=== PATIENT | female | born 1950 | race Caucasian/White ===

== ENCOUNTER 2025-02-02 11:37 | Emergency (ER) | payer MEDICARE, SELFPAY ==
--- NOTE | ~2025-02-02 | XR_ITS ---
EXAMINATION: XR knee RT 3V DATE: 02/02/2025 12:10 INDICATION: Injury TECHNIQUE: Right knee x-ray were obtained. COMPARISON: None. FINDINGS: The medial tibial plateau appears somewhat distorted possibly chronic but nondisplaced fractures difficult to exclude. The remainder the exam is unremarkable. IMPRESSION: 1. Atypical appearance of the medial tibial plateau which could be associated with nondisplaced medial tibial plateau fracture. Reviewed, dictated and finalized at location A. OSTATIC TESTER IMPRESSION: 1. Atypical appearance of the medial tibial plateau which could be associated w ith nondisplaced medial tibial plateau fracture.
[2025-02-02 11:46] VITALS: BP 136/85; PULSE 75; RESP 20; TEMP 37; O2SAT 97
--- NOTE | 2025-02-02 11:57 | ED_ITS ---
HPI - Extremity Injury (Lower) General Chief Complaint: Extremity Injury, Lower Stated Complaint: right knee injury History of Present Illness HPI Narrative: patient is a 74-year-old female, past medical history significant for GERD and hyperlipidemia, presents to [facility] with right knee pain, onset of symptoms 2 days ago when she tripped over an animal at her home and landed on her right knee. She denies any additional injuries as result of this incident.. She has had pain and swelling since, prompting her visit. Related Data Home Medications ?Medication ?Instructions ?Recorded ?Confirmed ?Last Taken ?Type famotidine 20 mg tablet mg 02/02/25 Unknown History omeprazole 40 mg capsule,delayed mg 02/02/25 Unknown History release pravastatin 20 mg tablet mg 02/02/25 Unknown History venlafaxine 37.5 mg mg PO 02/02/25 Unknown Hist ory capsule,extended release 24 hr Allergies Allergy/AdvReac Type Severity Reaction Status Date / Time No Known Allergies Allergy Verified 02/02/25 11:56 Review of Systems Musculoskeletal: Musculoskeletal: Reports no additional musculoskeletal complaints and Reports as per HPI Exam Const: General: healthy appearing and no acute distress Nutritional Appearance: well nourished and obese Orientation/consciousness: patient oriented x3 Limitations: no limitations HENMT: Head: normal to inspection Ears: external ears normal Face/Nose/Sinus: Normal external nose present Teeth and gingiva: dentition normal Eyes: Conjunctivae: conjunctivae normal EOM: EOMs intact bilaterally Direct Ophthalmoscopy: no photophobia Neck: Neck: normal visual inspection Other: no C-spine tenderness, step-offs Resp: Effort & Inspection: normal respiratory effort Cardio: Rate: regular rate Rhythm: regular rhythm Back/Spine/Pelvis: Other: no T or L-spine point tenderness, step-offs Skin: General skin exam: normal color Rashes: no rashes Wounds: no wounds Other: no ecchymosis Neuro: General: patient oriented x3, moves all extremities, no meningeal signs, no focal motor deficits and CN's II-XI intact bilaterally Extrem: Other: patient has chronic external rotation of her lower extremities secondary to 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 Patient is tender palpation over the right prepatellar and right knee joint line without crepitus or palpable joint effusion. There is no discoloration. patient unable to relax her lower extremity to determine if there is laxity with valgus or varus stress however there is no gross laxity noted. The right ankle is nontender palpation, as is the right foot. Distal PMS intact Course Course Emergency Course: Right knee plain film: Atypical appearance of the medial tibial plateau which could be associated with nondisplaced medial tibial plateau fracture. Will place in a knee immobilizer, orthopedic follow-up planned , likely outpatient CT of the right knee versus MRI may be ordered by Ortho at that appointment. Patient will call for an appointment. Level of Care: Express Care Visit ([id number]) Vital Signs Vital signs: Vital Signs Temperature 37.0 C 02/02/25 11:46 Pulse Rate 75 02/02/25 11:46 Respiratory Rate 20 02/02/25 11:46 Blood Pressure 136/85 02/02/25 11:46 Pulse Oximetry 97 02/02/25 11:46 Oxygen Delivery Room Air 02/02/25 11:46 Temperature 37.0 C 02/02/25 11:46 Pulse Rate 75 02/02/25 11:46 Respiratory Rate 20 02/02/25 11:46 Blood Pressure 136/85 02/02/25 11:46 Pulse Oximetry 97 02/02/25 11:46 Oxygen Delivery Room Air 02/02/25 11:46 MDM - Extremity Injury (Lower) MDM Narrative Medical decision making narrative: patient is placed in knee immobilizer, she plans to follow-up with ortho audible more ill as her PCP is located there however she is provided our on-call orthopedic provider for follow-up as a backup plan if she is unable to see her planned Ortho for any reason. She is given home care instructions, including continued rest, ice, elevation and the immobilizer use. Differential Diagnosis Differential diagnosis: Likely other ( Fracture, sprain, strain, internal derangement of the knee) Discharge Plan Discharge Clinical Impression: Injury of knee, right Qualifiers: Encounter type: initial encounter Qualified Code(s): S89.91XA - Unspecified injury of right lower leg, initial encounter Patient Disposition: Home Condition: Stable Instructions: Antibiotic Form, ACL Injury (ED), Knee Immobilizer (ED) Additional Instructions: WE ARE CONCERNED YOU MAY HAVE INJURY TO 1 OF THE LIGAMENTS THE CENTER OF THE KNEE, THE ACL OR PCL, BASED ON YOUR X-RAY AND THE LOCATION OF DISCOMFORT. YOU WILL LIKELY REQUIRE ADVANCED IMAGING SUCH CT OR MRI ONCE YOU ARE EVALUATED BY ORTHO. WEAR THE KNEE IMMOBILIZER ALL TIMES, REMOVING ONLY TO BATHE/SHOWER. ELEVATE THE LOWER EXTREMITY WHEN YOU ARE SEATED, FOLLOW-UP WITH THE ORTHOPEDIC PROVIDER OF YOUR CHOICE, CALL FOR APPOINTMENT. Patient Language: Kiswahili Prescriptions: No Action venlafaxine 37.5 mg capsule,extended release 24hr PO omeprazole 40 mg capsule,delayed release(DR/EC) famotidine 20 mg tablet pravastatin 20 mg tablet Follow-up/Referrals: Lisandra,MD Dc [Primary Care Provider] Yamil Ryan MD [Physician, Orthopedics] Time of Disposition: 12:29
--- OUTSIDE RECORDS SUMMARY | 2025-02-02 12:22 | XMS_ITS | Clinical Summary ---
Author Organization [facility] [address] Address [address] [address] Phone Care Team Providers Care Forklift Technician Name Role Phone Lisandra Dc Nicolas BARBA Primary Care Provider [phone] Allergies No known active allergies Medications venlafaxine XR (EFFEXOR-XR) 37.5 mg 24 hr capsuleIndicati ons:Depression, unspecified depression type TAKE 1 CAPSULE BY MOUTH EVERY DAY 90 capsule 1 5 Active omeprazole (PriLOSEC) 40 mg capsuleIndicati ons:Iron deficiency TAKE 1 CAPSULE (40 MG TOTAL) BY MOUTH DAILY. 90 capsule 1 5 Active famotidine (PEPCID) 20 mg tablet TAKE 1 TABLET BY MOUTH EVERY DAY AT NIGHT 90 tablet 1 5 Active pravastatin (PRAVACHOL) 20 mg tablet TAKE 1 TABLET BY MOUTH EVERY DAY 90 tablet 5 Active pravastatin (PRAVACHOL) 20 mg tablet TAKE 1 TABLET BY MOUTH EVERY DAY 90 tablet 5 025 Discontinued Active Problems Problem Noted Date Diagnosed Date Encounter for Medicare annual wellness exam 02/23 Assessment & Plan (08/29/2024 5:26 PM CDT): IMMUNIZATIONS WERE REVIEWED EYE EXAM AND DENTLA UPTODATE FALL PREVENTION AND PRECUATIONS WERE REVIEWED NO CONGTIVE DECLIN E GRANT (generalized anxiety disorder) 02/29/2024 Assessment & Plan (02/29/2024 7:43 PM PRESIDING JUDGE): Chronic and stable On effexor 37.5 mg po qday Routine physical examination 08/21/2023 Assessment & Plan (08/22/2023 4:51 PM CDT): IMMUNIZATIONS WERE REVIEWED EYE EXAM IS UPTODATE DENTAL APPTS UPTODATE COLONSCOPY IS UPTODATE AND MAMMOGRAM MAJOR DEPRESSION IN REMISSION ON EFFEXOR MIXED HYPERLIPIMDEIA : GOAL LDL IS UNDER 100 ON PRAVACHOL GERD SEVERE WITHOUT ESOPHAGITIS : PRILOSEC PLUS PEPCID FATIGUE : NON SPECIFIC WILL START WITH BLOOD WORK WITH B12/ TSH AND VIT D Mixed hyperlipidemia 02/06/2022 Overview (02/06/2022): ADD PRAVACHOL 20 MG PO QA Assessment & Plan (02/29/2024 7:44 PM PRESIDING JUDGE): Flp and ldl were reviewed Goal ldl is under 100 On pravachol 20 mg po qday Gastroesophageal reflux disease with esophagitis 09/01/2021 Overview (09/01/2021): Added automatically from request for surgery [id number] Assessment & Plan (02/29/2024 7:43 PM PRESIDING JUDGE): Chronic and stable On prilosec am And pepcid in pm Depression 03/12/2013 Overview (06/30/2016): Depression Rheumatoid arthritis 02/20/2012 Overview (06/30/2016): Rheumatoid arthritis Immunizations Immunization Administration Dates Next Due Influenza, Quad, Adjuvantate d, Intramuscular 12/31/2019 Influenza, Quadrivalent, Hig h Dose, Preservative Free, Intrr 02/20/2023,02/06/2022,02/07/2021 Influenza, Trivalent, High D ose, Split, Preservative Free, Intramuscular 02/29/2024,11/29/2018,01/11/2018,01/04 Pneumococcal Conjugate PCV 13 08/22/2019 ZOSTER Recombinant 08/18/2024,06/09/2024 Surgical History Surgery Date Site/Laterality Comments FOOT SURGERY 2001 L Foot Surgery ESOPHAGOGASTRODUODENOSCOPY COLONOSCOPY 09/10/2024 Medical History Medical History Date Comments RA (rheumatoid arthritis) GRANT (generalized anxiety disorder) MDD (major depressive disorder) HLD (hyperlipidemia) GERD (gastroesophageal reflux disease) Family History Medical History Relation Name Comments Heart disease Father 2 Heart disease; Cause of : Heart disease Arthritis Mother 2 Arthritis; Heart disease Mother 2 Heart disease; Cause of : Heart disease Other Other 1 No family histo ry of Cancer, breast; Other Other 2 No family histo ry of Cancer, colon; Relation Name Status Comments Father 1 (Age 84) Father 2 Mother 1 (Age 86) Mother 2 Other 1 Other 2 Social History Tobacco Use Types Packs/Day Years Used Date Smoking Tobacco: Never Smokeless Tobacco: Never Tobacco Cessation:Counseling Given: Not Answered Alcohol Use Standard Drinks/Week Comments No 0 (1 standard drink = 0.6 oz pur e alcohol) PHQ-2 Answer Date Recorded PHQ-2 Total Score (If total score is 3 or more points, staff should administer the PHQ-9) 0 08/29/2024 Personal Safety Answer Date Recorded Have you ever been in or are you currently in a harmful physical or emotional relationship or is someone making you feel afraid or unsafe? Denies 09/10/2024 Comments No Sex and Gender Information Value Date Recorded Sex Assigned at Not on file Legal Sex Female 1:43 AM PRESIDING JUDGE Gender Identity Not on file Sexual Orientation Not on file Obstetrics History Para Term AB IAB SAB Ectopic Multiple Livin g Live Births 3 3 3 Date Outcome GA Total Labor Labor/2nd/3rd Weight Sex Type Anes PTL Juanita A1 A5 Name Clin Term Term Term Last Filed Vital Signs Vital Sign Reading Time Taken Comments Blood Pressure 135/80 09/10/2024 11:03 AM CDT Pulse 60 09/10/2024 11:03 AM CDT Temperature 36.2 C (97.2 F) 09/10/2024 11:03 AM CDT Respiratory Rate 16 09/10/2024 11:03 AM CDT Oxygen Saturation 100% 09/10/2024 11:03 AM CDT Inhaled Oxygen Concentration - - Weight 72.6 kg (160 lb 0.9 oz) 09/30/2024 1:08 P M CDT Height 157.5 cm (5' 2) 09/30/2024 1:08 PM CDT Body Mass Index 29.27 09/30/2024 1:08 PM CDT Plan of Treatment Health Maintenance Due Date Last Done Comments Hepatitis C Screening 1950 DTaP/Tdap/Td Vaccine (1 - Tdap) 1961 Hepatitis B Screening 1968 Pneumococcal vaccine 65+ (2 of 2 - PCV20 or PCV21) 08/21/2020 08/22/2019 Covid-19 Vaccine (3 - 2024-2 6 season) 2024 09/30/2020, 09/07/2020 Influenza Vaccine (#1) 2024 , 02/20/2023, 02/06/2022, Additional history exists Depression Screening 08/29/2025 08/29/2024, 08/21/2023, 08/15/2022 Well Visit 65+ 08/29/2025 08/29/2024, 07/25, 08/15/2022, Additional history exists Fall Risk Assessment 09/10/2025 09/10/2024, 08/29/2024, 08/21/2023, Additional history exists Breast Cancer Screening-Mammogram 09/30/2025 09/30/2024, 08/29/2023, 02/13/2022, Additional history exists Osteoporosis Screening-Bone Density Scan 04/15/2026 04/15/2024, 12/11/2017 Colon Cancer Screening-Colonoscopy 09/10/2034 09/10/2024, 05/21/2015, 05/20/2015 Zoster Vaccine Completed 08/18/2024, 06/09/2024 Colon Cancer Screening-CT Colonography Discontinued 09/10/2024, 05/21/2015, 05/20/2015 Colon Cancer Screening-DNA Stool Discontinued 09/10/2024, 05/21/2015, 05/20/2015 Colon Cancer Screening-FIT Discontinued 09/10, 05/21/2015, 05/20/2015 Colon Cancer Screening-Sigmoidoscopy Discontinued 09/10/2024, 05/21/2015, 05/20/2015 Procedures Procedure Name Priority Date/Time Associated Diagnosis Comments SCREENING MAMMOGRAM BILATERAL W CHAVEZ Schedule Routine, Read Routine (OP Routine) 09/30/2024 1:07 PM CDT Screening mammogram for breast cancer COLONOSCOPY 09/10/2024 8:53 AM CDT DEXA AXIAL SKELETON BONE DENSITY 1 OR MORE SITES Schedule Routine, Read Routine (OP Routine) 04/15/2024 8:48 AM PRESIDING JUDGE Menopause from Last 3 Months or Most Recently Relevant to Health Maintenance Results * Screening Mammogram Bilateral W Chavez (09/30/2024 1:07 PM CDT) Anatomical Region Laterality Modality Breast Bilateral Mammography Impressions 09/30/2024 3:43 PM CDT Bilateral No evidence of malignancy in either breast. OVERALL BI-RADS FINAL ASSESSMENT: 2 - Benign RECOMMENDATION: Recommend bilateral annual screening mammography. Narrative 09/30/2024 3:43 PM CDT EXAMINATION: Screening Mammogram Bilateral W Chavez: 09/30/2024 COMPARISON: Relevent prior studies available at the time of interpretation were reviewed, including the most recent mammogram on: 08/29/2023. TECHNIQUE: Mammography was performed with 2D and digital breast tomosynthesis (DBT) images. CAD was utilized. BREAST PARENCHYMAL COMPOSITION: There are scattered areas of fibroglandular density. FINDINGS: Bilateral There is no suspicious mass, calcification, or architectural distortion in either breast. Dc Fry MD IMG MAMMO PROCEDURES Final Result * Colonoscopy (09/10/2024 8:53 AM CDT) Anatomical Region Laterality Modality Other Narrative Procedure Note Ibrahima Bautista, DO - 09/10/2024 8:53 AM CDT [facility] Patient Name: Massiel Cordero Procedure Date: 09/10/2024 8:53 AM Date of : 1950 Admit Type: Outpatient Age: 73 Gender: Female Attending MD: Ibrahima Bautista D.O. Room: [facility] ENDOSCOPY ROOM 3 Note Status: Finalized Patient Profile: Refer to note in patient chart for documentation of history and physical. Procedure: Colonoscopy Indications: Screening for colorectal malignant neoplasm, Last colonoscopy: April 2015 Referring MD: Dc Fry M.D. Providers: Ibrahima Bautista D.O. Impression: - The examined portion of the ileum was normal. - Diverticulosis in the sigmoid colon. - No specimens collected. Recommendation: - Discharge patient to home. - Resume previous diet. - Continue present medications. - Repeat colonoscopy is not recommended due tocurrent age (80 years or older) for surveillance based on clinical status at that time. - Return to primary care physician PRN. Medicines: Monitored Anesthesia Care Complications: No immediate complications. Estimated Blood Loss: Estimated blood loss: none. Procedure: Pre-Anesthesia Assessment: - As per anesthesia. The benefits, risks and alternatives of theprocedure and sedation were discussed and informed consentwas obtained. All questions were answered. Please referto the signed informed consent document in the medical record. The bowel preparation used was Miralax via split dose instruction. The bowel preparation usedwas bisacodyl tablets via split dose instruction. The scope was passed under direct vision. The Pediatric Colonoscope [id number]-H190L [id number] was introducedthrough the anus and advanced to the 3 cm into the ileum.The colonoscopy was performed without difficulty. The patient tolerated the procedure well. The qualityof the bowel preparation was adequate. Anatomical landmarks were photographed. Findings: The perianal and digital rectal examinations were normal. The terminal ileum appeared normal. Multiple diverticula were found in the sigmoid colon. No additional abnormalities were found on retroflexion. Electronically signed by Ibrahima Bautista M.D. Ibrahima Bautista D.O. 09/10/2024 10:37:20 AM Number of Addenda: 0 Note Initiated On: 09/10/2024 8:53 AM Procedure Code(s): --- Professional --- G0121, Colorectal cancer screening; colonoscopy on individual not meeting criteria for high risk --- Technical --- G0121, Colorectal cancer screening; colonoscopy on individual not meeting criteria for high risk Diagnosis Code(s): --- Professional --- Z12.11, Encounter for screening for malignant neoplasm of colon K57.30, Diverticulosis of large intestine without perforation orabscess without bleeding --- Technical --- Z12.11, Encounter for screening for malignant neoplasm of colon K57.30, Diverticulosis of large intestine without perforation orabscess without bleeding CPT copyright 2020 [employer]. All rights reserved. The codes documented in this report are preliminary and upon architecture drafter reviewmay be revised to meet current compliance requirements. 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 CLINICAL INFORMATION: Current height: 60.8 inches Maximum height: 62 inches Weight: 174 pounds Risk factors: Postmenopausal, rheumatoid arthritis COMPARISON: None available FINDINGS: AP LUMBAR SPINE L1-L4: Total BMD is 1.354 g/cm2 T-score is 2.8 LEFT HIP: Total BMD is 1.080 g/cm2 T-score is 1.1 Femoral neck BMD is 0.933 g/cm2 T-score is 0.8 FRAX: FRAX not reported due to T-scores of hip, femoral neck and/or spine being at or above -1.0 (Normal). IMPRESSION: Normal bone mass. REFERENCE: Bone mineral density: T-Score: Normal (T-score above or = -1.0) Low bone mass (T-score between -1.0 and -2.5) replaces the previously used term osteopenia Osteoporosis (T-score = or below -2.5) Z-Score: Within the expected range for age (Z-score above -2.0) Below the expected range for age (Z-score is -2.0 or below) Please see below follow up recommendations. Medical evaluation for secondary causes of low bone mineral density may be appropriate. FRAX is a World Health Organization validated fracture risk assessment tool that calculates a person's 10 year probability of a major osteoporosis related fracture and hip fracture. According to the National Osteoporosis Foundation guidelines, postmenopausal women and men age 50 or older with low bone mass and a 10 year probability of a major osteoporosis related fracture = or greater than 20% or a 10 year probability of a hip fracture = or greater than 3% should be considered for pharmacological treatment for the prevention of osteoporosis. For further information, including treatment recommendations, please refer to the 2019 ISCD Official Positions (http://www.iscd.org) and the NOF's Clinician's Guide to Prevention and Treatment of Osteoporosis (http://www.nof.org/professionals/clinical-guidelines) THIS IS AN ELECTRONICALLY VERIFIED FINAL REPORT 04/15/2024 3:13 PM - Electronically signed by Bharath Reaves M.D. MF: [id number] Report ID: [id number] Reading Location: [id number] Procedure Note Bharath Reaves MD - 04/15/2024 EXAM DESCRIPTION: DEXA AXIAL SKELETON BONE DENSITY 1 OR MORE SITES REASON FOR STUDY: 73 y/o year old F with given history of: menopause Osteoporosis screening Post menopausal Project Mgr/Model: [employer] (S/N [id number]) Facility LSC value of 0.022 for the AP spine, 0.027 for the femur, and0.023 for the forearm. CLINICAL INFORMATION: Current height: 60.8 inches Maximum height: 62 inches Weight: 174 pounds Risk factors: Postmenopausal, rheumatoid arthritis COMPARISON: None available FINDINGS: AP LUMBAR SPINE L1-L4: Total BMD is 1.354 g/cm2 T-score is 2.8 LEFT HIP: Total BMD is 1.080 g/cm2 T-score is 1.1 Femoral neck BMD is 0.933 g/cm2 T-score is 0.8 FRAX: FRAX not reported due to T-scores of hip, femoral neck and/or spine beingat or above -1.0 (Normal). IMPRESSION: Normal bone mass. REFERENCE: Bone mineral density: T-Score: Normal (T-score above or = -1.0) Low bone mass (T-score between -1.0 and -2.5) replaces thepreviously used term osteopenia Osteoporosis (T-score = or below -2.5) Z-Score: Within the expected range for age (Z-score above -2.0) Below the expected range for age (Z-score is -2.0 or below) Please see below follow up recommendations. Medical evaluation forsecondary causes of low bone mineral density may be appropriate. FRAX is a World Health Organization validated fracture risk assessmenttool that calculates a person's 10 year probability of a major osteoporosisrelated fracture and hip fracture. According to the National OsteoporosisFoundation guidelines, postmenopausal women and men age 50 or older with low bonemass and a 10 year probability of a major osteoporosis related fracture = or greater than 20% or a 10 year probability of a hip fracture = or greaterthan 3% should be considered for pharmacological treatment for the preventionof osteoporosis. For further information, including treatment recommendations, please referto the 2019 ISCD Official Positions (http://www.iscd.org) and the NOF's Clinician's Guide to Prevention and Treatment of Osteoporosis (http://www.nof.org/professionals/clinical-guidelines) THIS IS AN ELECTRONICALLY VERIFIED FINAL REPORT 04/15/2024 3:13 PM - Electronically signed by Bharath Reaves M.D. MF: [id number] Report ID: [id number] Reading Location: [id number] [facility] Services[facility]er[facility] Fry MD IMG DXA PROCEDURES Final R esult from Last 3 Months or Most Recently Relevant to Health Maintenance Insurance MEDICARE [employer] [facility] [place] Advance Directives For more information, please contact: [phone] * Full Code (Latest Code Status on File) Date Activated Date Inactivated Comments 09/10/2024 8:57 AM 09/10/2024 3:18 PM * Full Code Date Activated Date Inactivated Comments 09/10/2024 8:57 AM 09/10/2024 8:57 AM * Full Code Date Activated Date Inactivated Comments 10/27/2021 12:06 PM 10/27/2021 6:09 PM * Full Code Date Activated Date Inactivated Comments 10/27/2021 12:06 PM 10/27/2021 12:06 PM Care Teams Forklift Technician Relationship Specialty Start Date End Date Dc Fry MD [address] [place] [address] PCP - General 06/23/16
== END 2025-02-02 12:38 | disposition home or self-care (01) ==
PROVIDERS: Emergency Provider Nurse Practitioner Family; PCP Internal Medicine Infectious Disease
DX: S89.91XA Unspecified injury of right lower leg, initial encounter (principal); W01.0XXA Fall on same level from slipping, tripping and stumbling without subsequent striking against object, initial encounter
CPT/HCPCS: 73562; 99203; G0463; L1830